=== PATIENT | male | born 1965 ===

== ENCOUNTER 2017-03-31 15:00 | Day surgery (SDC) | payer BC ==
[~2017-03-31] VITALS: Ht 170.2 cm; Wt 81.5 kg
[2017-03-31 15:25] VITALS: BP 122/109; PULSE 82; TEMP 97.1
[2017-03-31] MEDS ORDERED: NEXIUM 20MG20 MG PO (15:25)
[2017-03-31 16:25] VITALS: BP 118/82; PULSE 76; TEMP 97.2
[2017-03-31 16:40] VITALS: BP 110/82; PULSE 76
[2017-03-31 16:55] VITALS: BP 119/96; PULSE 60
== END 2017-03-31 17:10 | disposition home or self-care (01) ==
LOC: SDCO 15:00
DX: Z12.11 Encounter for screening for malignant neoplasm of colon (principal); Z87.891 Personal history of nicotine dependence
CPT/HCPCS: OP; J2250; J3010; J7030

== ENCOUNTER → 2017-09-29 | Outpatient (CLI) | payer BC ==
[~2017-09-29] MED LIST: NEXIUM 20MG20 MG PO
== END ==
LOC: COL.VAS 08:52 → COL.CARD 10:30
DX: I49.3 Ventricular premature depolarization (principal); R00.8 Other abnormalities of heart beat